=== PATIENT | female | born 1995 | race Caucasian/White ===

== ENCOUNTER 2025-05-28 11:17 | Emergency (ER) | payer MEDICAID, OTHER ==
[~2025-05-28] VITALS: Ht 180.3 cm; Wt 65.8 kg
[2025-05-28 14:14] LABS: PLATELET COUNT (AUTO) 241 K/uL (150-450); RED BLOOD CELL COUNT(AUTO) 4.35 MIL/uL (4.0-5.2); RED CELL DISTRIBUTION WIDTH 12.6 % (11.5-15.0); WHITE BLOOD COUNT (AUTO) 7.5 K/uL (4.3-11.0)
[2025-05-28] MEDS ORDERED: ONDANSETRON HCL/PF 4 MG/2 ML VIAL ONE (14:15)
[2025-05-28] MEDS ORDERED: KETOROLAC TROMETHAMINE 15 MG/ML VIAL ONE (14:15)
[2025-05-28] MEDS ORDERED: METOCLOPRAMIDE HCL 10 MG/2 ML VIAL ONE (14:15)
[2025-05-28 14:28] LABS: INR 1.13 (0.91-1.10)
[2025-05-28 14:34] LABS: ASPARTATE AMINOTRANSFERASE 17.0 U/L (15-37); CALCIUM, SERUM 8.9 mg/dL (8.5-10.1); CREATININE 0.8 mg/dL (0.6-1.3); SODIUM SERUM 141.0 mmol/L (136-145); TOTAL PROTEIN, SERUM 7.4 g/dL (6.4-8.2); UREA NITROGEN, BLOOD 5.0 mg/dL (7-18)
[2025-05-28] MEDS: IV NS 0.9% 1,000 ML BAG IV ONE (14:39)
[2025-05-28] MEDS: METOCLOPRAMIDE HCL 10 MG/2 ML VIAL IV ONE (14:40)
[2025-05-28] MEDS: KETOROLAC TROMETHAMINE 15 MG/ML VIAL IV ONE (14:41)
[2025-05-28] MEDS: ONDANSETRON HCL/PF 4 MG/2 ML VIAL IVP ONE (14:41)
[2025-05-28] MEDS ORDERED: IBUP-1953 PO (16:23)
[2025-05-28] MEDS ORDERED: ONDA4TAB5 PO (16:23)
[2025-05-28 16:40] VITALS: BP 125/80; TEMP 98.7; O2SAT 100
== END 2025-05-28 16:40 | disposition home or self-care (01) ==
LOC: ER 11:35
DX: G43.909 Migraine, unspecified, not intractable, without status migrainosus (principal); R19.7 Diarrhea, unspecified; R11.2 Nausea with vomiting, unspecified; F84.0 Autistic disorder; I48.91 Unspecified atrial fibrillation; Z88.1 Allergy status to other antibiotic agents
CPT/HCPCS: 99285; 96374; 96375; 70450; 96361; 85025; 80048; 80076; 36415; 85730; J1885; J1200; J2765; J2405; J7030